=== PATIENT | female | born 1960 | race Caucasian/White ===

== ENCOUNTER 2021-10-01 07:21 | Emergency (ER) | payer OTHER ==
[~2021-10-01] VITALS: Ht 165.1 cm; Wt 83.5 kg
[2021-10-01] MEDS ORDERED: HYDROCODONE/APAP 5MG-325MG TAB PO ONE (09:30)
[2021-10-01] MEDS ORDERED: HYDROCODON-ACE1 EA12 PO (10:05)
[2021-10-01] MEDS ORDERED: IBUPROFEN600 MG PO (10:07)
== END 2021-10-01 10:38 | disposition home or self-care (01) ==
LOC: FSED 08:30
DX: S82.841A Displaced bimalleolar fracture of right lower leg, initial encounter for closed fracture (principal); W01.0XXA Fall on same level from slipping, tripping and stumbling without subsequent striking against object, initial encounter; Y93.53 Activity, golf; Y92.838 Other recreation area as the place of occurrence of the external cause; I10 Essential (primary) hypertension; K21.9 Gastro-esophageal reflux disease without esophagitis; F17.210 Nicotine dependence, cigarettes, uncomplicated
CPT/HCPCS: 99284

== ENCOUNTER → 2021-10-09 | Day surgery (SDC) | payer OTHER ==
[~2021-10-09] MED LIST: BUPIVACAINE HCL 0.5% INJ 30 ML VIAL INJ ONE; FENTANYL CITRATE/PF 100MCG/2 ML INJ ONE; HYDROCODON-ACE1 EA12 PO; HYDROMORPHONE 1MG/1ML INJ ONE; IBUPROFEN600 MG PO; KETOROLAC TROMETHAMINE 30 MG/ML VIAL ONE; LIDOCAINE HCL 2% LOCAL INJ 5 ML SDV VIAL INJ ONE; LIPITOR10 MG PO; MIDAZOLAM HCL 2 MG/2 ML VIAL ONE; ONDANSETRON HCL INJ 2MG/ML 2ML 2 MG/ML VIAL ONE; PANTOPRAZOLE SO40 MG PO; POVIDONE IODINE 0.05% 0.05 % ML PO ONE; PROPOFOL IV EMULSION 10 MG/ML 20 ML VIAL ONE; SEVOFLURANE INHAL SOLN 250 ML PEN BTL ONE; SODIUM CHLORIDE 0.9% 50ML 50 ML ONE; VERELAN PM200 MG PO; ZESTRIL10 MG PO
[2021-10-09 12:25] VITALS: BP 149/77
== END | disposition home or self-care (01) ==
LOC: OR 08:54
PROVIDERS: ATTEND Specialist
DX: S82.841A Displaced bimalleolar fracture of right lower leg, initial encounter for closed fracture (principal); I10 Essential (primary) hypertension; X58.XXXA Exposure to other specified factors, initial encounter; Z01.810 Encounter for preprocedural cardiovascular examination; Z01.812 Encounter for preprocedural laboratory examination; Z20.822 Contact with and (suspected) exposure to COVID-19; Z79.899 Other long term (current) drug therapy
CPT/HCPCS: 27766; 76000; 93005; J0690; J1170; J2250; J3010; U0002; J1885; J2001; J2405